=== PATIENT | male | born 1970 | race Caucasian/White ===

== ENCOUNTER → 2021-12-14 | Outpatient (CLI) | payer OTHER ==
[2016-04-05 10:59] VITALS: BP 131/85
[~2021-12-14] MED LIST: Bisacodyl PO; CYCL10TA19 PO; DEXAMETHASONE PRES.FREE 10 MG/ML VIAL. ONE; DOCU-109 PO; HYDR-2761 PO; HYDR-3135 PO; IBUP-1060 PO; IOHEXOL 180 MG/ML 10 ML VIAL. ONE; OXYC1TAB20 PO; Oxycodone Hcl/Acetaminophen PO
--- NOTE | 2021-12-14 12:56 | PDOC1 ---
INITIAL PAIN CONSULT DATE OF SERVICE: DOS: DATE: 12/14/21 TIME: 12:50 CHIEF COMPLAINT: Chief Complaint: Low back and left lower extremity pain HISTORY OF PRESENT ILLNESS: 51-year-old male presents history of pain low back and left lower extremity also some in the right lower extremity but much worse in the left lower extremity for many years worse over the past year or so not the result of any specific injury or accident that he is aware of is getting worse with time with pain rating the lower extremities posterior gluteus posterior thigh posterior calf again much worse on the left side patient reports is worse with walking standing changing positions better with sitting or laying down but awakens him from sleep at least twice a night. Patient reports no bowel or bladder incontinence no loss of motor function but significant fatigability of the left lower extremity with his foot dragging at times he is on his feet more than about 30 to 40minutes. Patient describes pain as constant and aching sharp and shooting in the back stabbing and throbbing in the back shooting in the leg radiating with tingling and numbness in the leg into the posterior gluteus and calf as well burning cramping aching in the left leg greater than the right as well. Patient reports no loss of motor function with significant fatigability with left lower extremity patient reports no bowel or bladder incontinence does affect his ability to walk fairly significantly patient reports he has been taking hydrocodone as well as meloxicam both of which decrease the pain he takes hydrocodone twice a day meloxicam 4 times a week both of those do decrease the pain but only by about 40 to 50% patient reports she has had previous epidural injections in the past which were helpful as well. Patient did have MRI scan dated November 13, 2021 showing postsurgical changes with L4-5 and L5-S1 fusion small left central disc extrusion extending caudad from L5-S1 producing left lateral recess stenosis with marked bilateral multifactorial neuroforaminal stenosis. PAST MEDICAL HISTORY: PMH: Hypertension PREVIOUS SURGERIES: Past Surgical Hx: Left hand surgery, cervical discectomy and fusion, lumbar discectomy and fusion with instrumentation CURRENT MEDICATIONS: Current Meds: Active Scripts Medications Dose Route/Sig Max Daily Dose Days Date Category Dose Instructions Cyclobenzaprine Hcl 10 Mg Tablet 10 Mg PO PRN TID PRN 04/05/16 Rx Colace (Docusate Sodium) 100 Mg Capsule 100 Mg PO BID 04/05/16 Rx [place] 10-325 Tablet (Acetaminophen/Hydrocodone Bitart) 1 Each Tablet 1 Tab PO PRN Q6HRS PRN 12/19/15 Reported LAST DOSE GIVEN: DATE:04-05-16 TIME:8:30 a.m. NEXT DOSE DUE: DATE:04-05-16 TIME:12:30 p.m. if needed for pain ALLERGIES; Allergies: Coded Allergies: No Known Drug Allergies (Unverified , 04/04/16) FAMILY HISTORY: Family Hx: No major medical problems or conditions that he is aware of SOCIAL HISTORY: Social Hx: Patient does not carl[place] alcohol does not smoke not use any illegal illicit or recreational drugs is single lives locally in [facility]. REVIEW OF SYSTEMS: ROS: Positive for those items mentioned in history of present illness, all systems are reviewed, otherwise negative ,and are complete full and well-documented on patient's chart. PHYSICAL EXAM: VS: Blood pressure is 122/82 pulse 60 respirations 18 temperature is 90.1 F height is 5 feet 10 inches weight is 219 pounds. PE: PHYSICAL EXAMINATION: GENERAL: The patient is awake, alert, oriented, appropriate, very pleasant in demeanor HEENT: Shows normocephalic, atraumatic. Extraocular movements are intact and symmetrical. Oral cavity: Mucous membranes moist and pink. Dentition is inta ct. NECK: Shows anterior throat supple without palpable lymphadenopathy noted. Swallow reflex symmetrical. CHEST: Shows normal on inspection. Breath sounds are clear bilaterally, no rales rhonchi or wheezes auscultated. HEART: Shows S1, S2 clear. No murmurs auscultated. ABDOMEN: Soft, nontender, nondistended. No palpable organomegaly is noted. BACK: Shows spine grossly in the midline. Normal-appearing cervical lordotic curvature. There is slightly increased thoracic kyphosis, some flattening of the lumbar lordotic curvature with well-healed surgical scarring noted. Lumbar paraspinous muscles show symmetrical on inspection, on palpation shows some moderate tenderness diffusely throughout the upper, middle and lower distribution of the paraspinous muscles bilaterally and also into the lower thoracic paraspinous musculature, firm and tender, but without specific trigger points, without radiation of pain. The patient has good rotational motion of the lumbar spine, both laterally as well as extension and flexion without significant difficulty. No tenderness over the spinous processes, sacrum or sacroiliac regions. EXTREMITIES: Lower extremities show deep tendon reflexes 2+ in the patellar and tendo calcaneus tendons. Motor exam is 5 on a scale of 5 with right dorsiflexion, extension, quadriceps and hamstring flexion and 4/5 on the left. Peripheral pulses are 1+ posterior tibial. No peripheral edema is noted bilaterally. Lower extremities are warm and dry to touch, equal in color and appearance. SKIN: Shows warm and dry, good turgor. No edema. No sores, rashes or bruising throughout. IMPRESSION: Impression: 51-year-old male with long history of low back and left lower extremity pain worse over the past year or so with a radicular pattern L5-S1 dermatomal distribution. MRI scan lumbar spine as noted Hypertension Plan: Options discussed with patient occluding conservative managements physical therapies interventional techniques. Patient like to pursue medical techniques. We discussed a lumbar epidural steroid injection using descriptions as well as anatomical models to describe the procedure. Risks were discussed including but not limited to: Bleeding, infection, possibility of epidural hematoma and subsequent neurological compromise, dural puncture, headaches, spinal cord and/or nerve damage, side effects of steroid medication, and poor results regarding pain control. Patient understands and wished to proceed. Patient return to clinic in approximately 2 weeks for follow-up, was counseled as to return appointment, activity level, and side effects to be aware of. Procedure is lumbar epidural steroid injection under local anesthetic using sterile prep and drape at the L5-S1 level using C-arm fluoroscopic guidance in both AP and lateral views medications injected is 20 mg dexamethasone +10mL preservative-free normal saline and 2 mL contrast- condition at discharge is stable patient tolerated procedure well had no complications. EV BEVERLY MD Dec 14, 2021 12:56
--- NOTE | 2021-12-14 12:57 | PDOC4 ---
Procedure Note: ICD 10 Code: ICD 10 Code: M54.17 M51.87 M48.07 M96.1 Procedure Note: Patient was consented for lumbar epidural steroid injection fluoroscopic guidance. Risks were discussed including but not limited to: Bleeding, infection, possibility of epidural hematoma and subsequent neurological compromise, dural puncture, headaches, spinal cord and/or nerve damage, side effects of steroid medication, and poor results regarding pain control. Patient understands and wished to proceed. Procedure is lumbar epidural steroid injection under local anesthetic using mack rile prep and drape at the L5-S1 level using C-arm fluoroscopic guidance in both AP and lateral views medications injected is 20 mg dexamethasone +10mL preservative-free normal saline and 2 mL contrast- condition at discharge is stable patient tolerated procedure well had no complications. EV BEVERLY MD Dec 14, 2021 12:57
== END | disposition home or self-care (01) ==
LOC: PNCL 10:52
PROVIDERS: ATTEND Anesthesiology
DX: M51.17 Intervertebral disc disorders with radiculopathy, lumbosacral region (principal); M48.07 Spinal stenosis, lumbosacral region; M96.1 Postlaminectomy syndrome, not elsewhere classified; M79.605 Pain in left leg; I10 Essential (primary) hypertension; G47.30 Sleep apnea, unspecified; Z79.899 Other long term (current) drug therapy; Z72.89 Other problems related to lifestyle; Z98.890 Other specified postprocedural states
CPT/HCPCS: 62323; 99214; J1100; Q9965; G0463

== ENCOUNTER → 2021-12-28 | Outpatient (CLI) | payer OTHER ==
[2016-04-05 10:59] VITALS: BP 131/85
[~2021-12-28] MED LIST changes: -DEXAMETHASONE PRES.FREE 10 MG/ML VIAL. ONE; -IOHEXOL 180 MG/ML 10 ML VIAL. ONE
== END | disposition home or self-care (01) ==
LOC: PNCL 12:54
PROVIDERS: ATTEND Anesthesiology
DX: M54.50 Low back pain, unspecified (principal)
CPT/HCPCS: G0463

== ENCOUNTER → 2022-01-04 | Outpatient (CLI) | payer OTHER ==
[2016-04-05 10:59] VITALS: BP 131/85
[~2022-01-04] MED LIST changes: +DEXAMETHASONE PRES.FREE 10 MG/ML VIAL. ONE; +IOHEXOL 180 MG/ML 10 ML VIAL. ONE
--- NOTE | 2022-01-04 16:05 | PDOC ---
Progress Note - Pain Clinic Date of Service: DOS: DATE: 01/04/22 TIME: 16:03 Diagnosis: Dx: Lumbar radiculopathy lumbar degenerative disease lumbar spinal stenosis and lumbar postlaminectomy syndrome History or Present Illness: HPI: 51-year-old male returns for follow-up status post lumbar epidural steroid injection x1 with about 75% improvement pain returning however 50% improvement overall but still significantly better than it was patient reports the pain is in the low back and left lower extremity posterior gluteus posterior thigh posterior calf worse with walking standing changing positions also some in the lateral thigh and calf as well patient reports shooting and tight sharp aching in the back tingling burning in the leg patient rates his pain as a 9 on scale 10 is worse over the past week 7 on average 6 at its least and is a 6 today. Patient reports no bowel or bladder incontinence loss of motor function but significant fatigability of the left leg with standing walking and changing positions. Patient reports generally is not awakening from sleep at night and feels better seated or laying down. Physical Exam: VS: Blood pressure is 128/81 pulse 93 respirations 18 temperature 98.1 F height is 5 feet 10 inches weight 228 pounds. PE: PHYSICAL EXAMINATION: GENERAL: The patient is awake, alert, oriented, appropriate, very pleasant in demeanor HEENT: Shows normocephalic, atraumatic. Extraocular movements are intact and symmetrical. Oral cavity: Mucous membranes moist and pink. Dentition is intact. NECK: Shows anterior throat supple without palpable lymphadenopathy noted. Swallow reflex symmetrical. CHEST: Shows normal on inspection. Breath sounds are clear bilaterally, no rales rhonchi or wheezes. HEART: Shows S1, S2 clear. No murmurs auscultated. ABDOMEN: Soft, nontender, nondistended. No palpable organomegaly is noted. BACK: Shows spine grossly in the midline. Normal-appearing cervical lordotic curvature. There is slightly increased thoracic kyphosis, some minor flattening of the lumbar lordotic curvature. Lumbar paraspinous muscles show symmetrical on inspection, on palpation shows some moderate tenderness diffusely throughout the upper, middle and lower distribution of the paraspinous muscles without specific trigger points, without radiation of pain. The patient has good rotational motion of the lumbar spine, both laterally as well as extension and flexion without significant difficulty. EXTREMITIES: Lower extremities show deep tendon reflexes 2+ in the patellar and tendo calcaneus tendons. Motor exam is 5 on a scale of 5 with right dorsiflexion, extension, quadriceps and hamstring flexion and 4/5 on the left. Peripheral pulses are 1 posterior tibial. No peripheral edema is noted bilatera lly. Lower extremities are warm and dry to touch, equal in color and appearance. SKIN: Shows warm and dry, good turgor. No edema. No sores, rashes or bruising throughout. Procedure: Procedure: Options discussed with the patient. Patient's old chart was reviewed as was his current medication regimen updated current review of systems updated today as well. We will proceed with a lumbar epidural steroid injection today with fluoroscopic guidance. Risks were discussed including but not limited to: Bleeding, infection, possibility of epidural hematoma and subsequent neurological compromise, dural puncture, headaches, spinal cord and/or nerve damage, side effects of steroid medication, and poor results regarding pain control. Patient understands and wished to proceed. Patient will return to clinic in approximately 2 weeks for follow-up, was counseled as return appointment, activity level, and side effects to be aware of. Medication Injected: Med Injected: Procedure is lumbar epidural steroid injection under local anesthetic using sterile prep and drape at the L5-S1 level using C-arm fluoroscopic guidance in both AP and lateral views medications injected is 20 mg dexamethasone +10mL preservative-free normal saline and 2 mL contrast- condition at discharge is stable patient tolerated procedure well had no complications. Condition at Discharge: Condition at Discharge: Condition at discharge stable, paced tolerated the procedure well and had no complications. EV BEVERLY MD January 04, 2022 16:05
--- NOTE | 2022-01-04 16:06 | PDOC4 ---
Procedure Note: ICD 10 Code: ICD 10 Code: M54.17 M51.87 M48.07 M96.1 Procedure Note: Patient was consented for lumbar epidural steroid injection with fluoroscopic guidance risks were discussed including but not limited to: Bleeding, infection, possibility of epidural hematoma and subsequent neurological compromise, dural puncture, headaches, spinal cord and/or nerve damage, side effects of steroid medication, and poor results regarding pain control. Patient understands and wished to proceed. Procedure is lumbar epidural steroid injection under local anesthetic using sterile prep and drape at the L5-S1 level using C-arm fluoroscopic guidance in both AP and lateral views medications injected is 20 mg dexamethasone +10mL preservative-free normal saline and 2 mL contrast- condition at discharge is stable patient tolerated procedure well had no complications. EV BEVERLY MD January 04, 2022 16:06
== END | disposition home or self-care (01) ==
LOC: PNCL 14:51
PROVIDERS: ATTEND Anesthesiology
DX: M51.16 Intervertebral disc disorders with radiculopathy, lumbar region (principal); M48.061 Spinal stenosis, lumbar region without neurogenic claudication; M96.1 Postlaminectomy syndrome, not elsewhere classified; G47.30 Sleep apnea, unspecified; Z72.89 Other problems related to lifestyle; Z79.899 Other long term (current) drug therapy; Z98.890 Other specified postprocedural states
CPT/HCPCS: 62323; J1100; Q9965